=== PATIENT | female | born 1965 | race Caucasian/White ===

== ENCOUNTER 2021-12-17 13:53 | Inpatient (IN) | payer BC ==
[~2021-12-17] VITALS: Ht 162.6 cm; Wt 61.2 kg
[~2021-12-17 13:53] MED LIST: ALEN70TA3 PO; BUPR-96 PO; BUPR300T52 PO; ESCI20TA PO
[2021-12-17] MEDS ORDERED: FLEET ENEMA 133 ML BOTTLE RC ONE ×2 (14:45→15:08)
--- NOTE | 2021-12-17 14:45 | NUR ---
at bedside to examine pt.
--- NOTE | 2021-12-17 15:14 | NUR ---
pt. up using facility steady gait.
[2021-12-17] MEDS ORDERED: IBUPROFEN 600 MG TABLET PO ONE (16:15)
[2021-12-17] MEDS ORDERED: IBUPROFEN 600 MG TABLET ONE (16:37)
[2021-12-17] MEDS ORDERED: LORAZEPAM 0.5 MG TABLET PO ONE (16:45)
[2021-12-17] MEDS ORDERED: LORAZEPAM 1 MG TABLET ONE (16:50)
[2021-12-17] MEDS ORDERED: DICYCLOMINE HCL 20 MG/2 ML AMPUL IM SCH (17:30)
[2021-12-17] MEDS ORDERED: MIRALAX 17 GM POWD.PACK PO ONE (17:30)
[2021-12-17] MEDS ORDERED: ACETAMINOPHEN 325 MG TABLET PO ONE (17:30)
[2021-12-17] MEDS ORDERED: ACETAMINOPHEN 325 MG TABLET ONE (17:45)
[2021-12-17] MEDS ORDERED: MIRALAX 17 GM POWD.PACK ONE (17:45)
[2021-12-17] MEDS ORDERED: DICYCLOMINE HCL LIQ 10 MG/5 ML UDC PO ONE (17:45)
[2021-12-17 17:48] LABS: HEMATOCRIT 37.3 % (31.2-41.9); MEAN CORPUSCULAR HEMOGLOBIN 31.8 uug (24.7-32.8); PLATELET COUNT (AUTO) 232 K/uL (179-408)
[2021-12-17] MEDS ORDERED: DICYCLOMINE HCL LIQ 10 MG/5 ML UDC ONE (17:50)
[2021-12-17 17:56] LABS: CREATININE 0.8 mg/dL (0.6-1.3); POTASSIUM 4.2 mmol/L (3.5-5.1)
--- NOTE | 2021-12-17 18:00 | NUR ---
patient with severe episodes of vomiting aporoximately 300 cc yellow/greenish output. medicated as ordered.
--- NOTE | 2021-12-17 18:04 | NUR ---
HR 65 NSR sbp of 165/81, RR 18, saturation 96% on RA. Patient eating dinner, at bedside.
[2021-12-17 18:09] LABS: BILIRUBIN,DIRECT 0.1 mg/dL (0.0-0.2); BILIRUBIN,TOTAL 0.5 mg/dL (0.2-1.0); TOTAL PROTEIN, SERUM 7.3 g/dL (6.4-8.2)
--- NOTE | 2021-12-17 18:10 | NUR ---
at bedside to discuss care with pt. and .
[2021-12-17] MEDS ORDERED: ONDANSETRON 4 MG/2 ML VIAL IV ONE (18:15)
--- NOTE | 2021-12-17 18:25 | NUR ---
Call charge R.N. for bed 314 assigned and informed that pt. will be admitted with incoming shift. And as of now assigned to karthikeyan Felix.
[2021-12-17] MEDS ORDERED: ONDANSETRON 4 MG/2 ML VIAL ONE (18:27)
[2021-12-17] MEDS ORDERED: BROM500T3 PO (18:44)
[2021-12-17] MEDS ORDERED: CEPH500C2 PO (18:44)
[2021-12-17] MEDS ORDERED: HYDR-3972 PO (18:44)
--- NOTE | 2021-12-17 19:02 | NUR ---
report given to incoming shift.
--- NOTE | 2021-12-17 19:56 | NUR ---
called 3rd floor in attempt to give report to Solange. was told Solange was in medication room. will call back
[2021-12-17] MEDS ORDERED: CLONIDINE HCL 0.1 MG TABLET PO PRN (20:00)
[2021-12-17] MEDS ORDERED: ACETAMINOPHEN 325 MG TABLET PO PRN (20:00)
[2021-12-17] MEDS ORDERED: HYDROCODONE/APAP 5-325MG TABLET PO PRN (20:00)
[2021-12-17] MEDS ORDERED: MAGNESIUM HYDROXIDE 30 ML LIQUID UDC PO PRN (20:00)
--- NOTE | 2021-12-17 20:18 | NUR ---
report called to Solange HYATT, pt to go to room 314. Covid test performed, pt is providing a urine sample.
[2021-12-17 20:53] LABS: *BILIRUBIN,URIN NEGATIVE (NEGATIVE); *BLOOD, URINE 1+ (NEGATIVE); *CLARITY,URINE CLEAR (CLEAR); *COLOR,URINE YELLOW (YELLOW); *KETONES,URINE NEGATIVE (NEGATIVE); *UROBILINOGEN,URINE 0.2 E.U./dl (NORMAL); LEUKOCYTE ESTERASE ,URINE NEGATIVE (NEGATIVE); NITRITE, URINE NEGATIVE (NEGATIVE); UGLUCOSE NEGATIVE (NEGATIVE)
[2021-12-17] MEDS ORDERED: MAGNESIUM CITRATE 296 ML BOTTLE PO ONE (21:00)
[2021-12-17] MEDS ORDERED: DOCUSATE SODIUM 100 MG CAPSULE PO SCH (21:00)
--- NOTE | 2021-12-17 21:00 | NUR ---
pt transferred via [facility] accompanied by 2 RNs and pt's with all belongings to room 314. OLENA Mai and OLENA Narvaez aware of arrival.
[2021-12-17 21:16] LABS: BACTERIA,URINE NONE SEEN /HPF (NONE SEEN); MUCUS,URINE FEW /LPF (0-FEW); SQUAMOUS EPITHELIAL CELL,UR FEW /HPF (NONE SEEN); WBC,URINE 0-3 /HPF (0-3)
[2021-12-17] MEDS ORDERED: MAGNESIUM CITRATE 296 ML BOTTLE ONE (21:47)
[2021-12-17] MEDS ORDERED: TRAZODONE 50 MG TABLET PO SCH (22:00)
--- NOTE | 2021-12-17 22:00 | NUR ---
Admitted patient to med-surg unit from ER via [facility] accompanied by ER nurse and patient's .Dx of obstipation.Patient denies abdominal pain at this time. On Ra.No s/so distress noted. Per Patient's patient had nasal sx done yesterday.Patient observed with dressing on her nose.Skin discoloration noted on bilateral periorbital.Due meds given as ordered. Vomited x2 , unable to consume citrate magnesium. notified with new order received noted and carried out.IV patent and intact on Right AC .Zofran IVP given with good effect.Patient ambulates to bathroom. Voided well. Call light with in reach. Will continue to monitor.
[2021-12-17 22:30] VITALS: BP 163/84
[2021-12-17] MEDS ORDERED: ONDANSETRON 4 MG/2 ML VIAL IV PRN (23:00)
[2021-12-18 04:00] VITALS: BP 150/89
[2021-12-18 05:55] VITALS: BP 133/88
[2021-12-18] MEDS ORDERED: PANTOPRAZOLE SODIUM 40 MG TABLET.DR PO SCH (07:00)
[2021-12-18 07:16] LABS: HEMATOCRIT 38.7 % (31.2-41.9); MEAN CORPUSCULAR HEMOGLOBIN 31.4 uug (24.7-32.8); MEAN CORPUSCULAR VOLUME 94.3 fL (75.5-95.3); PLATELET COUNT (AUTO) 251 K/uL (179-408)
[2021-12-18 07:28] LABS: BILIRUBIN,TOTAL 0.6 mg/dL (0.2-1.0); CREATININE 0.7 mg/dL (0.6-1.3); MAGNESIUM 2.1 mg/dL (1.8-2.4); PHOSPHOROUS 2.5 mg/dL (2.5-4.9); POTASSIUM 3.9 mmol/L (3.5-5.1); TOTAL PROTEIN, SERUM 7.5 g/dL (6.4-8.2)
[2021-12-18] MEDS ORDERED: Medication Not On Formulary EA (Bupropion Hcl (Wellbutrin Xl) 300 MG) PO SCH (09:00)
[2021-12-18] MEDS ORDERED: CEphaleXIN 500 MG CAPSULE PO SCH ×2 (09:00→10:00)
[2021-12-18] MEDS ORDERED: buPROPion XL 150 MG TAB.SR.24H PO SCH (10:00)
[2021-12-18] MEDS ORDERED: FLEET ENEMA 133 ML BOTTLE RC ONE (10:15)
--- NOTE | 2021-12-18 10:30 | NUR ---
Administered fleet enema, pt had small soft bowel movement. Overall she reports feeling better than admission and says the discomfort is tolerable. Plan is to discharge home with continued medications. Comfort measures provided, call light within reach.
[2021-12-18] MEDS ORDERED: ONDA4TAB11 PO (10:49)
[2021-12-18 11:36] VITALS: BP 138/92
--- NOTE | 2021-12-18 12:15 | NUR ---
Pt is being discharged. No signs of acute distress, no complaint of severe pain. Pt is ambulatory, tolerating diet well, and passing gas along with a small bowel movement. Pt is going home with via private car. She has been wheeled down with all personal belongings and discharge education at hand. Explained educational material regarding diagnosis and after care at home to prevent constipation. IV and ID band removed.
[2021-12-18] MEDS ORDERED: TRAZODONE 50 MG TABLET PO SCH (21:00)
== END 2021-12-18 12:15 | disposition home or self-care (01) | DRG 392 ==
LOC: ER 13:53 → MEDSURG3 20:06
PROVIDERS: ADMIT Internal Medicine; ATTEND Nurse Practitioner Family
DX: K59.00 Constipation, unspecified (principal); D68.51 Activated protein C resistance; E87.1 Hypo-osmolality and hyponatremia; F32.A Depression, unspecified; Z79.899 Other long term (current) drug therapy; E86.1 Hypovolemia; Z82.49 Family history of ischemic heart disease and other diseases of the circulatory system; D72.829 Elevated white blood cell count, unspecified; E21.3 Hyperparathyroidism, unspecified; Z87.891 Personal history of nicotine dependence
CPT/HCPCS: 36415; 83690; 83735; 84100; 85025; A4663; G0378; J2405